=== PATIENT | female | born 1955 | race Caucasian/White ===

== ENCOUNTER 2019-12-07 21:31 | Emergency (ER) | payer MEDICAID, OTHER ==
--- NOTE | 2019-12-07 22:07 | EDM.PDOC ---
ED HPI GENERAL MEDICAL PROBLEM - General Chief Complaint: Back Pain or Injury Stated Complaint: LOWER BACK HIP AND GROIN PAIN Time Seen by Provider: 12/07/19 21:32 Source of Information: Reports: Patient History Limitations: Reports: No Limitations - History of Present Illness INITIAL COMMENTS - FREE TEXT/NARRATIVE: TRIAGE NOTE -- pt has chronic backpain and bursitis and arthritis, she doing good until around 10AM when she was makng a bed and she might bend her back and have sharp pain to her lower back and radiated to her left hip, left groind and down to her left leg. pt took meloxicam but did not help As above. The patient has a long history of chronic back pain. She has a neurosurgeon in [place]. She has had a couple of back surgeries described by patient as "spinal fusion." Her only medication is meloxicam and she has been taking this without relief. Using the TENS unit without relief. There is been no incontinence of bowel or bladder and no subjective report of extremity weakness. There is been no fever, respiratory symptoms or any other symptom of acute medical illness. Risk factors consist of heavy smoking history. Smoked for 45 years and quit a month ago. Also severe obesity BMI 38. The patient told the nurse that she was addicted to opioids and has been "clean " for 5 years. Lower Back Pain Score (Numeric/FACES): 10 - Related Data Allergies Allergy/AdvReac Type Severity Reaction Status Date / Time duloxetine [From Cymbalta] Allergy Other Verified 12/07/19 21:48 Past Medical History Cardiovascular History: Reports: Hypertension Gastrointestinal History: Reports: Diverticulosis MANAGER CONFIGURATION History: Reports: Musculoskeletal History: Reports: Arthritis, Back Pain, Chronic Psychiatric History: Reports: Addiction - Past Surgical History HEENT Surgical History: Reports: Oral Surgery Other HEENT Surgeries/Procedures: dental implants Musculoskeletal Surgical History: Reports: Arthroscopic Knee, Other (See Below) Other Musculoskeletal Surgeries/Procedures:: 3 spinal fusion 2 years ago Social & Family History - Tobacco Use Smoking Status *Q: Former Smoker (Heavy smoker, smoked for 45 years, quit a month ago.) Years of Tobacco use: 45 Packs/Tins Daily: 0.5 Used Tobacco, but Quit: Yes Month/Year Tobacco Last Used: 1 month - Caffeine Use Caffeine Use: Reports: Coffee - Alcohol Use Date of Last Drink: 12/07/19 Time of Last Drink: 21:00 - Recreational Drug Use Recreational Drug Use: Yes Drug Use in Last 12 Months: No Recreational Drug Type: Reports: Cocaine, LSD (Acid), Marijuana/Hashish, Methamphetamine, Oxycodone Recreational Drug Use Frequency: Not Used In Over 6 Months Recreational Drug Last Use: 5 years ED ROS GENERAL - Review of Systems Review Of Systems: Comprehensive ROS is negative, except as noted in HPI. ED EXAM,LOWER BACK PAIN/INJURY - Physical Exam Exam: See Below Exam Limited By: No Limitations General Appearance: Alert, WD/WN, No Apparent Distress (Obviously uncomfortable) , Other (Anodyne gait stance and seated posture) Eye Exam: Bilateral Eye: EOMI, PERRL Ears: Normal External Exam Nose: Normal Inspection Throat/Mouth: Normal Inspection Head: Atraumatic, Normocephalic Neck: Normal Inspection Respiratory/Chest: No Respiratory Distress, Lungs Clear Cardiovascular: Regular Rate, Rhythm (Mild tachycardia initially) GI/Abdominal: Soft, Non-Tender Back Exam: Muscle Spasm Extremities: Normal Inspection, No Pedal Edema Neurological: Alert, Oriented x 3, Other (No limb weakness) Psychiatric: Normal Affect Skin Exam: Warm, Dry Course - Vital Signs Last Recorded V/S: Last Vital Signs Temp 36.1 C 12/07/19 21:41 Pulse 103 H 12/07/19 21:41 Resp 20 12/07/19 21:41 BP 151/95 H 12/07/19 21:41 Pulse Ox 95 12/07/19 21:41 - Orders/Labs/Meds Meds: Medications Discontinued Medications Generic Name Dose Route Start Last Admin Trade Name Edyq PRN Reason Stop Dose Admin Ketorolac Tromethamine 60 mg 12/07/19 22:26 12/07/19 22:31 Toradol IM 12/07/19 22:27 60 mg ONETIME ONE Administration Departure - Departure Time of Disposition: 22:48 Disposition: Home, Self-Care 01 Condition: Good Clinical Impression: Acute exacerbation of chronic low back pain - Discharge Information Instructions: Acute Back Pain, Adult, Chronic Back Pain Referrals: PCP,Not In Area [Primary Care Provider] - Forms: ED Department Discharge Additional Instructions: Rest this weekend. Use ice as we discussed. Resume activity after no more than 48 hours. No sitting. Report this incident to your neurosurgeon for any additional recommendations. Recommend program of sustained light aerobic exercise 45 to 60 minutes daily. Return to ER for any concerns, any pain issues that cannot be managed in the home. Sepsis Event Note - Evaluation Sepsis Screening Result: No Definite Risk - Focused Exam Vital Signs: Vital Signs Temp Pulse Resp BP Pulse Ox 12/07/19 21:41 36.1 C 103 H 20 151/95 H 95 Date Exam was Performed: 12/07/19 Time Exam was Performed: 22:47
[2019-12-07] MEDS ORDERED: Ketorolac 60 MG/2 ML SDV IM ONE (22:26)
== END 2019-12-07 23:17 | disposition home or self-care (01) ==
LOC: JD.ED 21:31
DX: G89.29 Other chronic pain (principal); M54.5 Low back pain; E66.9 Obesity, unspecified; Z88.8 Allergy status to other drugs, medicaments and biological substances; I10 Essential (primary) hypertension; Z87.891 Personal history of nicotine dependence; Z68.38 Body mass index [BMI] 38.0-38.9, adult
CPT/HCPCS: 96372; 99283; J1885

== ENCOUNTER 2021-05-19 20:25 | Emergency (ER) | payer MEDICARE, OTHER ==
[2021-05-19] MEDS ORDERED: Sodium Chloride 0.9% 1,000 ML IV ONE (20:50)
--- NOTE | 2021-05-19 20:58 | EDM.PDOC ---
ED HPI GENERAL MEDICAL PROBLEM - General Chief Complaint: Trauma Stated Complaint: FELL DOWN STAIRS/SEVERAL INJURIES Time Seen by Provider: 05/19/21 20:25 Source of Information: Reports: Patient History Limitations: Reports: Intoxication - History of Present Illness INITIAL COMMENTS - FREE TEXT/NARRATIVE: A trauma alert was called for this patient. Ms. Douglas is a very pleasant 65-year-old woman who is now brought to the ED by a family member after she became intoxicated and fell down approximately 6 or 7 wood steps at home just prior to being brought to the ED. The patient states that she drank about half of a fifth of bourbon since 10:00 this morning. Her fall down the stairs was unwitnessed, the patient states that she does not remember the event. She is complaining of pain to her head, neck, back, and right thumb. She denies any tingling, numbness, or weakness to any of her extremities. Here in the ED, the patient is found to be hemodynamically stable, afebrile, saturating 91% on room air. She appears to be intoxicated, but in no acute distress. A cervical collar was placed immediately upon arrival to the ED. Prior to this evening's event, the patient denies having a recent fever, chills, sore throat, ear pain, nasal or sinus congestion, cough, dyspnea, chest pain, palpitations, nausea, vomiting, constipation, diarrhea, abdominal pain, urinary symptoms, recent weight gain or weight loss, recent bloody bowel movements or black bowel movements, recent joint aches, headaches, or rashes. The patient's PCP is Dr. Kimberly Brito. Her Surgeon is Dr. Janes Hinojosa. She has received 2 COVID vaccinations. Neck Pain Score (Numeric/FACES): 10 - Related Data Allergies Allergy/AdvReac Type Severity Reaction Status Date / Time duloxetine [From Cymbalta] Allergy Severe Other Verified 05/19/21 20:42 Home Meds: Home Meds Celecoxib 100 mg PO BID 05/19/21 [History] Phentermine HCl 30 mg PO DAILY 05/19/21 [History] Past Medical History Gastrointestinal History: Reports: Diverticulosis (diverticulitis) Psychiatric History: Reports: Addiction (polysubstance), Depression (untreated) Endocrine/Metabolic History: Reports: Obesity/BMI 30+ - Past Surgical History HEENT Surgical History: Reports: Oral Surgery (dental implants), Tonsillectomy GI Surgical History: Reports: Colonoscopy (x 3) Neurological Surgical History: Reports: Lumbar Spine (fusion x 3, L3-S1) Musculoskeletal Surgical History: Reports: Arthroscopic Knee (bilateral) Social & Family History - Tobacco Use Tobacco Use Status *Q: Current Every Day Tobacco User Years of Tobacco use: 47 Packs/Tins Daily: 0.2 Packs/Tins Daily Comment: Down from 3 ppd Tobacco Use Comment: Started smoking 1973 - Caffeine Use Caffeine Use: Reports: Coffee - Alcohol Use Alcohol Use History: Yes Alcohol Use Frequency: Socially (occasionally to excess) - Recreational Drug Use Recreational Drug Use: Yes Drug Use in Last 12 Months: Yes Recreational Drug Type: Reports: Cocaine (last smoked crack around 1999), Heroin (last smoked around 2015), LSD (Acid) (last took in her 20s), Marijuana/Hashish (last smoked early Apr 2021), Methamphetamine (last snorted mid-Apr 2021), Other (see below) (last snorted around 1999) - Living Situation & Occupation Living situation: Reports: , with Family Occupation: Unemployed Review of Systems - Review of Systems Review Of Systems: Comprehensive ROS is negative, except as noted in HPI. ED EXAM, GENERAL - Physical Exam Exam: See Below Exam Limited By: No Limitations General Appearance: Alert, WD/WN, No Apparent Distress Eye Exam: Bilateral Eye: EOMI, Normal Inspection, PERRL Ears: Normal External Exam, Normal Canal, Hearing Grossly Normal, Normal TMs Nose: Normal Inspection, Normal Mucosa, No Blood Throat/Mouth: Normal Inspection, Normal Lips, Normal Teeth, Normal Gums, Normal Oropharynx, Normal Voice, No Airway Compromise Head: Atraumatic, Normocephalic Neck: Other (Cervical collar kept in place) Respiratory/Chest: No Respiratory Distress, Lungs Clear, Normal Breath Sounds, No Accessory Muscle Use, Chest Non-Tender Cardiovascular: Normal Peripheral Pulses, Regular Rate, Rhythm, No Gallop, No JVD, No Murmur, No Rub Peripheral Pulses: 3+: Radial (L), Radial (R) GI/Abdominal: Normal Bowel Sounds, Soft, Non-Tender, No Organomegaly, No Distention, No Abnormal Bruit, No Mass Extremities: Normal Capillary Refill, Other (Swelling, ecchymosis, and tenderness to the distal phalanx of the right thumb. There is an approximately 1.5 cm superficial tangential linear laceration to the volar aspect of the right thumb just proximal to the IP joint.) Neurological: Alert, Oriented, CN II-XII Intact, Normal Cognition, No Motor/Sensory Deficits Psychiatric: Normal Affect Skin Exam: Warm, Dry, Intact, Normal Color, No Rash Course - Vital Signs Last Recorded V/S: Last Vital Signs Temp 36.6 C 05/19/21 20:36 Pulse 90 05/19/21 21:23 Resp 16 05/19/21 21:23 BP 117/78 05/19/21 21:23 Pulse Ox 92 L 05/19/21 21:23 - Orders/Labs/Meds Orders: Active Orders 24 hr Category Date Time Status Cervical Spine wo Cont [CT] Stat Exams 05/19/21 20:49 Taken Chest 1V Frontal [CR] Stat Exams 05/19/21 20:50 Taken Fingers Thumb Rt F5 [CR] Stat Exams 05/19/21 20:52 Taken Head wo Cont [CT] Stat Exams 05/19/21 20:49 Taken CORONAVIRUS COVID-19 CARROL [MOLEC] Stat Lab 05/19/21 22:08 Ordered Sodium Chloride 0.9% [Normal Saline] 1,000 ml Med 05/19/21 20:50 Active IV ONETIME Medication Orders Sodium Chloride (Normal Saline) 1,000 mls @ 125 mls/hr IV ONETIME ONE Stop: 05/20/21 04:49 Last Admin: 05/19/21 21:22 Dose: 125 mls/hr Documented by: [place] Labs: Laboratory Tests 05/19/21 05/19/21 05/19/21 Range/Units 20:44 20:44 20:44 WBC 7.90 (3.98-10.04) K/mm3 RBC 5.14 (3.98-5.22) M/mm3 Hgb 15.8 H (11.2-15.7) gm/dl Hct 49.0 H (34.1-44.9) % MCV 95.3 H (79.4-94.8) fl MCH 30.7 (25.6-32.2) pg MCHC 32.2 (32.2-35.5) g/dl RDW Std Deviation 47.8 H (36.4-46.3) fL Plt Count 342 (182-369) K/mm3 MPV 9.1 L (9.4-12.3) fl Neutrophils % (Manual) 64 H (40-60) % Band Neutrophils % 1 (0-10) % Lymphocytes % (Manual) 27 (20-40) % Atypical Lymphs % 1 % Monocytes % (Manual) 6 (2-10) % Eosinophils % (Manual) 1 (0.7-5.8) % Basophils % (Manual) 0 L (0.1-1.2) Platelet Estimate Adequate RBC Morph Comment Normal PT 9.8 (9.7-12.0) SECONDS INR < 0.93 APTT 25.9 (21.7-31.4) SECONDS Sodium 146 H (136-145) mEq/L Potassium 3.5 (3.5-5.1) mEq/L Chloride 109 H (98-107) mEq/L Carbon Dioxide 24 (21-32) mEq/L Anion Gap 16.5 H (5-15) BUN 14 (7-18) mg/dL Creatinine 0.6 (0.55-1.02) mg/dL Est Cr Clr Drug Dosing 86.36 mL/min Estimated GFR (MDRD) > 60 (>60) mL/min BUN/Creatinine Ratio 23.3 H (14-18) Glucose 115 H (70-99) mg/dL Calcium 8.2 L (8.5-10.1) mg/dL Total Bilirubin 0.4 (0.2-1.0) mg/dL AST 26 (15-37) U/L ALT 34 (14-59) U/L Alkaline Phosphatase 58 (46-116) U/L Total Protein 7.2 (6.4-8.2) g/dl Albumin 3.4 (3.4-5.0) g/dl Globulin 3.8 gm/dL Albumin/Globulin Ratio 0.9 L (1-2) Urine Opiates Screen (OEFSUS=185) Ur Buprenorphine Scrn (CUTOFF=10) Ur Oxycodone Screen (PYF4ST=529) Urine Methadone Screen (LQEYYF=388) Ur Propoxyphene Screen (YSFNDX=753) Ur Barbiturates Screen (LARVOS=360) Ur Tricyclics Screen (KNKIPM=190) Ur Phencyclidine Scrn (CUTOFF=25) Ur Amphetamine Screen (NXFVGC=077) U Methamphetamines Scrn (HFCSPW=661) U Benzodiazepines Scrn (BLBHEE=777) U Cocaine Metab Screen (ANJDLK=006) U Marijuana (THC) Screen (CUTOFF=50) Ethyl Alcohol 0.27 (0.00) gm% 05/19/21 Range/Units 21:50 WBC (3.98-10.04) K/mm3 RBC (3.98-5.22) M/mm3 Hgb (11.2-15.7) gm/dl Hct (34.1-44.9) % MCV (79.4-94.8) fl MCH (25.6-32.2) pg MCHC (32.2-35.5) g/dl RDW Std Deviation (36.4-46.3) fL Plt Count (182-369) K/mm3 MPV (9.4-12.3) fl Neutrophils % (Manual) (40-60) % Band Neutrophils % (0-10) % Lymphocytes % (Manual) (20-40) % Atypical Lymphs % % Monocytes % (Manual) (2-10) % Eosinophils % (Manual) (0.7-5.8) % Basophils % (Manual) (0.1-1.2) Platelet Estimate RBC Morph Comment PT (9.7-12.0) SECONDS INR APTT (21.7-31.4) SECONDS Sodium (136-145) mEq/L Potassium (3.5-5.1) mEq/L Chloride (98-107) mEq/L Carbon Dioxide (21-32) mEq/L Anion Gap (5-15) BUN (7-18) mg/dL Creatinine (0.55-1.02) mg/dL Est Cr Clr Drug Dosing mL/min Estimated GFR (MDRD) (>60) mL/min BUN/Creatinine Ratio (14-18) Glucose (70-99) mg/dL Calcium (8.5-10.1) mg/dL Total Bilirubin (0.2-1.0) mg/dL AST (15-37) U/L ALT (14-59) U/L Alkaline Phosphatase (46-116) U/L Total Protein (6.4-8.2) g/dl Albumin (3.4-5.0) g/dl Globulin gm/dL Albumin/Globulin Ratio (1-2) Urine Opiates Screen Negative (YQQPHR=037) Ur Buprenorphine Scrn Negative (CUTOFF=10) Ur Oxycodone Screen Negative (BXM0JE=569) Urine Methadone Screen Negative (KJOHRJ=809) Ur Propoxyphene Screen Negative (DIMKTQ=670) Ur Barbiturates Screen Negative (BISBXQ=700) Ur Tricyclics Screen Negative (BBNBTK=105) Ur Phencyclidine Scrn Negative (CUTOFF=25) Ur Amphetamine Screen Negative (GNUZLE=848) U Methamphetamines Scrn Negative (ARXBFV=711) U Benzodiazepines Scrn Negative (JIYICW=138) U Cocaine Metab Screen Negative (BHFLQH=938) U Marijuana (THC) Screen Negative (CUTOFF=50) Ethyl Alcohol (0.00) gm% Meds: Medications Generic Name Dose Route Start Last Admin Trade Name Freq PRN Reason Stop Dose Admin Sodium Chloride 1,000 mls @ 125 mls/hr 05/19/21 20:50 05/19/21 21:22 Normal Saline IV 05/20/21 04:49 125 mls/hr ONETIME ONE Administration - Re-Assessments/Exams Free Text/Narrative Re-Assessment/Exam: 05/19/21 20:56 I ordered CTs of the head and cervical spine without contrast, a portable chest x-ray, x-rays of the right thumb, several blood tests, and a urine drug screen. In the meantime, the patient will be treated with some IV fluid. 05/19/21 21:33 CT of the head without contrast is read by [facility] as "No acute change is identified." 05/19/21 21:41 Contacted by the [facility] Radiologist at 21:38. The patient has a nondisplaced odontoid fracture. 05/19/21 21:44 Portable chest radiograph appears to be grossly normal. The cardiac silhouette is within normal limits. No pulmonary vascular congestion. No pleural effusions seen on this AP view. No focal infiltrate. No pneumothorax. Formal read per the Radiologist pending. 2-view radiographs of the right thumb appear to demonstrate an intra-articular fracture of the distal phalanx. No other fractures or dislocations identified. Formal read per the Radiologist pending. 05/19/21 21:48 CT of the cervical spine without contrast is read by [facility] as "Fracture of the odontoid. 2. Moderate cervical spondylosis elsewhere." 05/19/21 22:19 The patient's CBC is remarkable for an H/H slightly elevated at 15.8/49.0, with remainder of her CBC being unremarkable. Her CMP is remarkable for slight hypernatremia of 146, and anion gap slightly elevated at 16.5 with a bicarbonate normal at 24, and slight hyperglycemia of 115, with remainder of her CMP being unremarkable. Her coags are within normal limits. Her EtOH level is significantly elevated at 0.27. Results of her urine drug screen and swab for the SARS-CoV-2 virus are still pending. All images pushed to [facility] at 22:01. Notified by our foreign clerk that there are no beds available at [facility]. Case discussed with Jed at [facility] at 22:12. Case then discussed with Dr. Thornton, ED Physician at [facility], at 22:17. He accepted the patient for transfer to their ED. The patient will go by air. 05/19/21 22:34 The patient's urine drug screen is completely negative. Departure - Departure Time of Disposition: 22:24 Disposition: DC/Tfer to Acute Hospital 02 Condition: Good Clinical Impression: Alcohol intoxication, Odontoid fracture, Fall at home, Fracture of phalanx of right thumb - Discharge Information *PRESCRIPTION DRUG MONITORING PROGRAM REVIEWED*: Not Applicable *COPY OF PRESCRIPTION DRUG MONITORING REPORT IN PATIENT ZAKIA: Not Applicable Referrals: Kimberly Brito MD [Physician] - Janes Hinojosa MD [Physician] - Forms: ED Department Discharge Sepsis Event Note (ED) - Evaluation Sepsis Screening Result: No Definite Risk - Focused Exam Vital Signs: Vital Signs Temp Pulse Resp BP Pulse Ox 05/19/21 21:23 90 16 117/78 92 L 05/19/21 20:36 36.6 C 94 20 131/71 91 L - My Orders Last 24 Hours: My Active Orders 05/19/21 20:49 Cervical Spine wo Cont [CT] Stat Head wo Cont [CT] Stat 05/19/21 20:50 Chest 1V Frontal [CR] Stat Sodium Chloride 0.9% [Normal Saline] 1,000 ml IV ONETIME 05/19/21 20:52 Fingers Thumb Rt F5 [CR] Stat 05/19/21 22:08 CORONAVIRUS COVID-19 CARROL [MOLEC] Stat - Assessment/Plan Last 24 Hours: My Active Orders 05/19/21 20:49 Cervical Spine wo Cont [CT] Stat Head wo Cont [CT] Stat 05/19/21 20:50 Chest 1V Frontal [CR] Stat Sodium Chloride 0.9% [Normal Saline] 1,000 ml IV ONETIME 05/19/21 20:52 Fingers Thumb Rt F5 [CR] Stat 05/19/21 22:08 CORONAVIRUS COVID-19 CARROL [MOLEC] Stat
--- NOTE | 2021-05-20 07:46 | CT ---
CT cervical spine Technique: Multiple axial sections were obtained from above C1 inferiorly through the lower T2 level. Reconstructed coronal and sagittal images were obtained. Findings: Fracture is noted to the dens of C2. Very slight cortical step-off is seen but no other significant displacement is noted. Degenerative change is noted between the dens and anterior arch of C1. Fairly severe disc space narrowing is noted at C4-5, C5-6 and C6-7. Anterior osteophytes are seen at these levels. There is minimal spondylolisthesis at C4-5 being seen which is due to degenerative apophyseal change. Other degenerative apophyseal change is seen throughout the cervical spine. Mild scattered neural foraminal narrowing is noted. On the AP view there is prominent degenerative spurring within the uncovertebral joints at C5-6 and lesser at C6-7 and C5-6. There is endplate concavities being seen within T1 which are most likely old. Slight compression deformity also noted superiorly within C6 which appears to be old. No definite central canal stenosis is seen. No additional fracture or acute subluxation is seen. Impression: 1. Fracture involving the C2 dens. No significant displacement is seen at this time. 2. Degenerative change as noted above. 3. Endplate concavities of T1 which are most likely old as no definite acute fracture lines are seen. Mild compression deformity within the superior endplate of C6 which also is old. 4. Slight spondylolisthesis is noted at C4-5 due to degenerative apophyseal change. Diagnostic code #5 I agree with preliminary report from [facility], finalized on 05/19/21, 10:43 PM CDT, code 1
--- NOTE | 2021-05-20 07:49 | CR ---
Chest: Supine portable view of the chest was obtained. Comparison: No prior chest imaging is available. Slight linear densities are seen within the left lung base compatible with atelectasis or scarring. Small area of parenchymal change is seen next to this finding which could represent minimal area of contusion as well as scarring. Lungs otherwise are clear. Heart size and mediastinum are normal. Bony structures show nothing acute. Impression: 1. Minimal atelectasis or scarring within the left lung base. 2. Small parenchymal density within the left lung base either due to additional scarring or possible small area of parenchymal contusion. 3. Nothing acute is otherwise seen. Diagnostic code #3
--- NOTE | 2021-05-20 07:55 | CR ---
Right thumb: 2 views of the right thumb were obtained. Comparison: No prior thumb studies available. On one view the distal phalanx does not line up normally with the middle phalanx. At least partial subluxation is possible. There appears to be a small fracture within the metaphysis of the distal phalanx. Diffuse soft tissue swelling is noted. Mild degenerative change is noted within the wrists and within the visualized portions of the fingers. Impression: 1. At least partial subluxation within the IP joint of the thumb. Probable metaphyseal fracture fragment is also present within the distal phalanx metaphysis. 2. Soft tissue swelling. 3. Scattered degenerative change. Diagnostic code #3
--- NOTE | 2021-05-20 07:57 | CT ---
Head CT Technique: Multiple axial sections through the brain were obtained. Intravenous contrast was not utilized. Comparison: No prior intracranial imaging is available. Findings: Ventricles along with basal cisterns and sulci over the convexities are within normal limits for the patient's age. No abnormal parenchymal densities are seen. No evidence of intracranial hemorrhage is seen. No midline shift or mass-effect is seen. There is a extra-axial calcification being seen within the right posterior fossa measuring 8 mm which is most likely due to an old calcified meningioma. Bone window settings were reviewed. No acute calvarial abnormality is seen. Visualized paranasal sinuses and mastoid sinuses show nothing acute. No acute calvarial abnormality is appreciated. Impression: 1. Small osseous meningioma located extra-axially within the right posterior fossa. This measures about 8 mm and is felt to be chronic. 2. No acute intracranial abnormality is appreciated. Diagnostic code #2 I agree with preliminary report from [facility], finalized on 05/19/21, 10:29 PM CDT, code 1
== END 2021-05-19 23:19 ==
LOC: JD.ED 20:25
DX: S12.110A Anterior displaced Type II dens fracture, initial encounter for closed fracture (principal); S62.501A Fracture of unspecified phalanx of right thumb, initial encounter for closed fracture; F10.129 Alcohol abuse with intoxication, unspecified; E66.9 Obesity, unspecified; Z68.41 Body mass index [BMI] 40.0-44.9, adult; Z72.0 Tobacco use; Z88.8 Allergy status to other drugs, medicaments and biological substances; Z20.822 Contact with and (suspected) exposure to COVID-19; W10.8XXA Fall (on) (from) other stairs and steps, initial encounter; Y90.0 Blood alcohol level of less than 20 mg/100 ml
CPT/HCPCS: 36415; 70450; 71045; 72125; 73140; 80053; 80306; 80307; 85007; 85027; 85610; 85730; 99285; J7030; U0002

== ENCOUNTER 2022-01-28 09:38 | Day surgery (SDC) | payer MEDICARE, OTHER ==
[~2022-01-28 09:38] MED LIST: Lactated Ringers 1,000 ML IV SCH; Lidocaine 1%/Sod Bicarbonate in NS 8.4% 1 ML Syringe IDERM PRN; Sodium Chloride 0.9% 10 ML Syringe FLUSH PRN; Sodium Chloride 0.9% 10 ML Syringe FLUSH SCH
[2022-01-28] MEDS ORDERED: fentaNYL 100 MCG/2 ML SDV ONE (09:52)
[2022-01-28] MEDS ORDERED: Propofol 200 MG/20 ML SDV ONE (09:52)
[2022-01-28] MEDS ORDERED: Midazolam 1 MG/ML 2 ML SDV ONE (09:53)
== END 2022-01-28 11:21 | disposition home or self-care (01) ==
LOC: JD.SDS 09:38
PROVIDERS: ATTEND Surgery
DX: D12.0 Benign neoplasm of cecum (principal); K57.30 Diverticulosis of large intestine without perforation or abscess without bleeding; K64.8 Other hemorrhoids; K64.4 Residual hemorrhoidal skin tags; F41.9 Anxiety disorder, unspecified; F17.210 Nicotine dependence, cigarettes, uncomplicated; H54.7 Unspecified visual loss; I10 Essential (primary) hypertension; F32.A Depression, unspecified; E78.00 Pure hypercholesterolemia, unspecified; E66.9 Obesity, unspecified; Z88.8 Allergy status to other drugs, medicaments and biological substances; Z98.890 Other specified postprocedural states; Z79.899 Other long term (current) drug therapy; Z87.19 Personal history of other diseases of the digestive system
CPT/HCPCS: 45380; 88305; J2250; J2704; J3010; J7120; 00811